=== PATIENT | female | born 1975 | race Caucasian/White ===

== ENCOUNTER → 2018-03-23 | Outpatient (CLI) | payer BC ==
--- NOTE | 2018-03-24 09:58 | MM ---
Reason for exam: screening (asymptomatic). Last mammogram was performed 1 year and 2 months ago. History: Took hormonal contraceptives for 20 years. Taking progesterone for 1 month. Physical Findings: A clinical breast exam by your physician is recommended on an annual basis and results should be correlated with mammographic findings. MG 3D Screening Mammo W/Cad Bilateral CC and MLO view(s) were taken. Prior study comparison: February 04, 2017, bilateral MG 3d screening mammo w/cad. The breast tissue is heterogeneously dense. This may lower the sensitivity of mammography. Focal asymmetry upper outer left breast 5.6cm from nipple. This finding is changed when compared with previous exams. ASSESSMENT: Incomplete: need additional imaging evaluation, BI-RAD 0 RECOMMENDATION: Ultrasound of the left breast. [facility] will attempt to contact patient to return for ultrasound.
== END ==
LOC: RADMAMWWP 13:02
PROVIDERS: ATTEND Obstetrics & Gynecology
DX: Z12.31 Encounter for screening mammogram for malignant neoplasm of breast (principal)
CPT/HCPCS: 77063; 77067

== ENCOUNTER → 2018-04-08 | Outpatient (CLI) | payer BC ==
--- NOTE | 2018-04-08 11:06 | MM ---
Reason for exam: additional evaluation requested from abnormal screening. Last mammogram was performed 1 month ago. History: Took hormonal contraceptives for 20 years. Taking progesterone for 1 month. Physical Findings: Nurse did not find any significant physical abnormalities on exam. MG 3D Work Up W/Cad LT LM and spot compression MLO view(s) were taken of the left breast. Prior study comparison: March 23, 2018, bilateral MG 3d screening mammo w/cad. February 04, 2017, bilateral MG 3d screening mammo w/cad. The breast tissue is heterogeneously dense. This may lower the sensitivity of mammography. No distinct lesion persists on additional views. These results were verbally communicated with the patient and result sheet given to the patient on 04/08/18. ASSESSMENT: Negative, BI-RAD 1 RECOMMENDATION: Return to routine screening mammogram schedule for both breasts.
== END ==
LOC: RADUSWWP 10:08
PROVIDERS: ATTEND Obstetrics & Gynecology
DX: R92.8 Other abnormal and inconclusive findings on diagnostic imaging of breast (principal)
CPT/HCPCS: 77061; 77065

== ENCOUNTER → 2019-08-25 | Outpatient (CLI) | payer BC ==
--- NOTE | 2019-08-29 08:28 | MM ---
Reason for exam: screening (asymptomatic). Last mammogram was performed 1 year and 5 months ago. History: Took hormonal contraceptives for 20 years beginning at age 20. Taking progesterone for 1 year 6 months. Physical Findings: A clinical breast exam by your physician is recommended on an annual basis and results should be correlated with mammographic findings. MG 3D Screening Mammo W/Cad Bilateral CC and MLO view(s) were taken. Prior study comparison: April 08, 2018, left breast MG 3d work up w/cad LT. March 23, 2018, bilateral MG 3d screening mammo w/cad. The breast tissue is heterogeneously dense. This may lower the sensitivity of mammography. No significant changes when compared with prior studies. ASSESSMENT: Benign, BI-RAD 2 RECOMMENDATION: Routine screening mammogram of both breasts in 1 year.
== END | disposition home or self-care (01) ==
LOC: RADMAMWWP 15:14
PROVIDERS: ATTEND Obstetrics & Gynecology
DX: Z12.31 Encounter for screening mammogram for malignant neoplasm of breast (principal)
CPT/HCPCS: 77063; 77067

== ENCOUNTER → 2020-05-01 | Outpatient (CLI) | payer BC ==
--- NOTE | 2020-05-01 11:27 | XR ---
EXAMINATION TYPE: XR clavicle RT DATE OF EXAM: 05/01/2020 COMPARISON: NONE HISTORY: Lesion of clavicle, palpable lump for one month. TECHNIQUE: 2 views right clavicle. FINDINGS: No acute displaced fracture. No suspicious bony expansile or destructive lesion. Overlying soft tissues are unremarkable. Visualized right ribs and lungs are unremarkable. IMPRESSION: As above. If palpable abnormality persists, consider further investigation with CT exam t o better evaluate possible radiolucent soft tissue mass.
== END | disposition home or self-care (01) ==
LOC: RADXRMAIN 11:04
PROVIDERS: ATTEND Family Medicine
DX: R22.31 Localized swelling, mass and lump, right upper limb (principal)

== ENCOUNTER → 2020-08-31 | Outpatient (CLI) | payer BC ==
--- NOTE | 2020-09-24 15:49 | EM ---
14 Day Event monitor note: Patient wore an event monitor for 14 days from 08/31/2020 until 09/14/2020. Findings: Patient's baseline heart rate was normal sinus rhythm. There were no signficant atrial fibrillation, atrial flutter, or ventricular tachycardia episodes. There were no significant pauses greater than 2 seconds. Patient had a total of 104 auto captured and symptom activated events. Patient had symptoms of dizziness, lightheadedness, shortness of breath, nausea, or sweating which corresponded with sinus rhythm. There were very rare PACs. No PVCs noted. Conclusions: 14 day event monitor showing normal sinus rhythm and symptoms corresponding with normal sinus rhythm. Otherwise only very rare PACs. MTDD
== END | disposition home or self-care (01) ==
LOC: RADECHMAIN 12:13
PROVIDERS: ATTEND Family Medicine
DX: I49.8 Other specified cardiac arrhythmias (principal); R00.2 Palpitations
CPT/HCPCS: 93270

== ENCOUNTER → 2020-10-12 | Outpatient (CLI) | payer BC ==
--- NOTE | 2020-10-16 09:52 | MM ---
Reason for exam: screening (asymptomatic). Last mammogram was performed 1 year and 2 months ago. History: Took hormonal contraceptives for 20 years beginning at age 20. Taking progesterone for 2 years 8 months. Physical Findings: A clinical breast exam by your physician is recommended on an annual basis and results should be correlated with mammographic findings. MG 3D Screening Mammo W/Cad Bilateral CC and MLO view(s) were taken. Prior study comparison: August 25, 2019, bilateral MG 3d screening mammo w/cad. March 23, 2018, bilateral MG 3d screening mammo w/cad. The breast tissue is heterogeneously dense. This may lower the sensitivity of mammography. Finding: There are typically benign round, grouped/clustered calcifications in the right breast. There is no discrete abnormality. ASSESSMENT: Benign, BI-RAD 2 RECOMMENDATION: Routine screening mammogram of both breasts in 1 year.
== END | disposition home or self-care (01) ==
LOC: RADMAMWWP 09:39
PROVIDERS: ATTEND Obstetrics & Gynecology
DX: Z12.31 Encounter for screening mammogram for malignant neoplasm of breast (principal)
CPT/HCPCS: 77063; 77067

== ENCOUNTER → 2021-08-28 | Outpatient (CLI) | payer BC ==
--- NOTE | 2021-08-29 07:36 | US ---
EXAMINATION TYPE: US pelvis complete transvag DATE OF EXAM: 08/28/2021 COMPARISON: NONE CLINICAL HISTORY: 46-year-old female D25.9 LEIOMYOMA OF UTERUS, UNSPECIFIED. BLOATING, URINARY FREQUE NCY, PRESSURE IN PELVIC AREA TECHNIQUE: Transabdominal sonographic images of the pelvis were acquired. Transvaginal sonographic i mages were medically necessary to better assess anatomy. Date of LMP: 08/20/2021 FINDINGS: EXAM MEASUREMENTS: Uterus: 10.6 x 4.9 x 5.7 cm Endometrial Stripe: 0.9 cm Right Ovary: 4.8 x 2.3 x 2.5 cm for a volume of 8.6 mL (only seen transabdominally) Left Ovary: 3.9 x 2.5 x 3.0 cm for a volume of 15.0 mL 1. Uterus: Anteverted. Myometrium appears slightly heterogeneous. There are cervical nabothian cys ts measuring up to 1.1 cm. 2. Endometrium: Appears wnl 3. Right Ovary: Follicles noted, largest measures 1.4 x 0.9 x 1.1cm 4. Left Ovary: Follicles noted, dominate follicle or corpus luteum measures 2.0 x 1.6 x 2.3 cm 5. Bilateral Adnexa: Appears wnl 6. Posterior cul-de-sac: Trace free fluid, likely physiologic IMPRESSION: 1. Normal follicular change in the ovaries. There is a 2.3 cm dominant follicle or corpus luteum of t he left ovary. 2. Trace cul-de-sac free fluid likely physiologic.
== END | disposition home or self-care (01) ==
LOC: RADUSWWP 16:13
PROVIDERS: ATTEND Family Medicine
DX: D25.9 Leiomyoma of uterus, unspecified (principal)
CPT/HCPCS: 76830; 76856

== ENCOUNTER → 2021-10-08 | Outpatient (CLI) | payer BC ==
--- NOTE | 2021-10-08 19:24 | CT ---
EXAMINATION TYPE: CT abdomen pelvis wo con CT DLP: 546.4 mGycm, Automated exposure control for dose reduction was used. DATE OF EXAM: 10/08/2021 7:13 PM COMPARISON: None. CLINICAL INDICATION:Female, 46 years old with history of R10.32 LLQ pain; LLQ pain and bloating x1 mo nth TECHNIQUE: Axial CT of the abdomen and pelvis. Sagittal and coronal reformats were created on a [employer] workstation. Contrast used: None Oral contrast used: with Oral Contrast FINDINGS: LOWER CHEST: Unremarkable ABDOMEN LIVER: Unremarkable GALLBLADDER AND BILE DUCTS: Unremarkable. PANCREAS: Unremarkable. SPLEEN: Unremarkable. ADRENAL GLANDS: Unremarkable. KIDNEYS AND URETERS: No evidence of hydronephrosis or renal calculus. The ureters are unremarkable. PELVIS BLADDER: Unremarkable REPRODUCTIVE: Tampon is seen within the vagina. ABDOMEN & PELVIS STOMACH AND BOWEL: No evidence of bowel obstruction. The stomach is distended with ingested contents and contrast material. PERITONEUM: No evidence of pneumoperitoneum or free fluid. VASCULATURE: No evidence of aortic aneurysm. MUSCULOSKELETAL: No acute osseous abnormalities LYMPH NODES: No gross evidence for lymphadenopathy. SOFT TISSUE/ABDOMINAL WALL: Unremarkable IMPRESSION: No evidence for acute abdominal process finding to explain patient's pain.
== END | disposition home or self-care (01) ==
LOC: RADCTMAIN 17:22
PROVIDERS: ATTEND Family Medicine
DX: R10.32 Left lower quadrant pain (principal)
CPT/HCPCS: 74176

== ENCOUNTER → 2021-10-15 | Outpatient (CLI) | payer BC ==
--- NOTE | 2021-10-16 13:35 | MM ---
Reason for Exam: Screening (asymptomatic). Last screening mammogram was performed 12 month(s) ago. Patient History: Menarche at age 14. First Full-Term at age 30. Currently using Progesterone, for 4 years, 8 months. Hormonal Contraceptives for 15 years from age 20 until age 37. Last menstrual period: 10/10/2021 Risk Values: Abigail 5 year model risk: 0.9%. NCI Lifetime model risk: 10.6%. Prior Study Comparison: 04/08/2018 Left Diagnostic Mammogram, [facility]. 08/25/2019 Bilateral Screening Mammogram, [facility]. 10/12/2020 Bilateral Screening Mammogram, [facility]. Tissue Density: The breast tissue is heterogeneously dense. This may lower the sensitivity of mammography. Findings: Analyzed By CAD. No significant changes when compared with prior studies. No discrete abnormality. Overall Assessment: Negative, BI-RAD 1 Management: Screening Mammogram of both breasts in 1 year. A clinical breast exam by your physician is recommended on an annual basis and results should be correlated with mammographic findings. Electronically signed and approved by: Lloyd Samuels M.D. Radiologis
== END | disposition home or self-care (01) ==
LOC: RADMAMWWP 20:32
PROVIDERS: ATTEND Obstetrics & Gynecology
DX: Z12.31 Encounter for screening mammogram for malignant neoplasm of breast (principal)
CPT/HCPCS: 77063; 77067

== ENCOUNTER → 2021-12-09 | Outpatient (CLI) | payer BC ==
[2021-12-09 23:49] LABS: T4, Free (Free Thyroxine) 1.17 ng/dL (0.800-1.800); Testosterone 22.4 ng/mL (9.01-47.94)
== END | disposition home or self-care (01) ==
LOC: LABWHC1 15:41
PROVIDERS: ATTEND Obstetrics & Gynecology
DX: E03.9 Hypothyroidism, unspecified (principal); E34.50 Androgen insensitivity syndrome, unspecified
CPT/HCPCS: 36415; 84403; 84439; 84443; 84481

== ENCOUNTER → 2022-05-12 | Outpatient (CLI) | payer BC ==
[2022-05-13 05:54] LABS: T4, Free (Free Thyroxine) 1.46 ng/dL (0.800-1.800)
== END | disposition home or self-care (01) ==
LOC: LABWHC1 15:46
DX: E03.9 Hypothyroidism, unspecified (principal)
CPT/HCPCS: 36415; 84439; 84443; 84481

== ENCOUNTER → 2022-12-10 | Outpatient (CLI) | payer BC ==
[2022-12-11 02:31] LABS: Estradiol <20.0 pg/mL
[2022-12-11 02:35] LABS: T4, Free (Free Thyroxine) 1.32 ng/dL (0.80-1.80)
[2022-12-11 04:17] LABS: Follicle Stimulating Hormone 9.3 mIU/mL
--- NOTE | 2022-12-11 08:33 | MM ---
Reason for Exam: Screening (asymptomatic). Last mammogram was performed 1 year(s) and 2 month(s) ago. Patient History: Menarche at age 14. First Full-Term at age 30. Currently using Progesterone, for 4 years, 8 months. Hormonal Contraceptives for 15 years from age 20 until age 37. Risk Values: Abigail 5 year model risk: 0.9%. NCI Lifetime model risk: 10.5%. Prior Study Comparison: 08/25/2019 Bilateral Screening Mammogram, [facility]. 10/12/2020 Bilateral Screening Mammogram, [facility]. 10/15/2021 Bilateral MG 3D screening mammo w/cad, [facility]. Tissue Density: The breast tissue is heterogeneously dense. This may lower the sensitivity of mammography. Findings: Analyzed By CAD. Pattern appears symmetrical and stable. No significant interval changes are evident. Benign calcifications in the posterior right breast. No suspicious groups of microcalcifications, spiculated or lobular masses, architectural distortion or other secondary signs of malignancy are mammographically apparent. Overall Assessment: Benign, BI-RAD 2 Management: Screening Mammogram of both breasts in 1 year. A negative mammogram report should not preclude additional follow up of suspicious palpable abnormalities. Patient should continue monthly self breast exam. A clinical breast exam by your physician is recommended on an annual basis and results should be correlated with mammographic findings. Electronically signed and approved by: Kenneth Courtney D.O. Radiologis
== END | disposition home or self-care (01) ==
LOC: RADMAMWWP 14:56
PROVIDERS: ATTEND Obstetrics & Gynecology
DX: Z12.31 Encounter for screening mammogram for malignant neoplasm of breast (principal); E03.9 Hypothyroidism, unspecified; N95.1 Menopausal and female climacteric states
CPT/HCPCS: 77063; 77067; 82670; 83001; 84144; 84403; 84439; 84443; 84481

== ENCOUNTER → 2023-10-15 | Outpatient (CLI) | payer BC ==
--- NOTE | 2023-10-15 12:54 | US ---
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 Pt states it has been painful lately . TECHNIQUE: Scanned right axilla at area of concern. FINDINGS: No abnormalities seen by ultrasound at this time. IMPRESSION: No discrete sonographic abnormality. No abnormal fluid collection, mass, or adenopathy i dentified by ultrasound. Further clinical follow-up can be performed. Patient due for annual mammogra m in 2 months.
== END | disposition home or self-care (01) ==
LOC: RADUSWWP 09:01
PROVIDERS: ATTEND Dermatology
DX: D48.5 Neoplasm of uncertain behavior of skin (principal)

== ENCOUNTER → 2023-12-15 | Outpatient (CLI) | payer BC ==
--- NOTE | 2023-12-21 13:25 | MM ---
Reason for Exam: Screening (asymptomatic). Last screening mammogram was performed 12 month(s) ago. Patient History: Menarche at age 14. First Full-Term at age 30. Perimenopausal. Hormonal Contraceptives for 15 years from age 20 until age 37. Risk Values: Abigail 5 year model risk: 1.0%. NCI Lifetime model risk: 10.3%. Prior Study Comparison: 10/12/2020 Bilateral Screening Mammogram, [facility]. 10/15/2021 Bilateral MG 3D screening mammo w/cad, [facility]. 12/10/2022 Bilateral MG 3D screening mammo w/cad, [facility]. Tissue Density: There are scattered areas of fibroglandular density. Findings: Analyzed By CAD. Right breast: There is no suspicious group of microcalcifications or new suspicious mass. Left breast: There is no suspicious group of microcalcifications or new suspicious mass. Overall Assessment: Negative, BI-RAD 1 Management: Screening Mammogram of both breasts in [address] [facility] will attempt to contact patient to return for supplemental views and ultrasound if indicated. Patient should continue monthly self-breast exams. A clinical breast exam by your physician is recommended on an annual basis. This exam should not preclude additional follow-up of suspicious palpable abnormalities. Note on Abigail scores and lifetime risk: 1. A Abigail score greater than 3% is considered moderate risk. If this is the case, consider specialist referral to assess eligibility for a risk reducing agent. 2. If overall lifetime risk for the development of breast cancer is 20% or higher, the patient may qualify for future screening with alternating mammogram and breast MRI. [facility], , 12/21/2023 1:23 PM. Electronically signed and approved by: Vinnie Carlson DO
== END | disposition home or self-care (01) ==
LOC: RADMAMWWP 11:18
PROVIDERS: ATTEND Obstetrics & Gynecology
DX: Z12.31 Encounter for screening mammogram for malignant neoplasm of breast (principal); R92.323 Mammographic fibroglandular density, bilateral breasts
CPT/HCPCS: 77063; 77067